=== PATIENT | female | born 2000 | race Two or more races ===

== ENCOUNTER 2025-03-02 12:31 | Emergency (ER) | payer SELFPAY ==
[2025-03-02 12:46] VITALS: BMI 27.8
[2025-03-02 12:49] VITALS: BP 153/87; PULSE 93; RESP 18; TEMP 36.8; O2SAT 100
--- NOTE | 2025-03-02 13:30 | EDNOTE_ITS ---
ED Headache RME/HPI General Chief Complaint: Headache Stated Complaint: STIFFNESS TO RIGHT SIDE OF HEAD DIZZINESS Time Seen by Provider: 03/02/25 12:55 Arrival date/time: 03/02/25 12:31 This is a 24-year-old female that comes into the emergency room with complaints of dizziness at times, headache and some mild neck pain. Patient also states that her right ear feels full. Patient was already seen by her primary provider and was started on prednisone, Sudafed, and Promethazine DM. Patient was treated for a viral illness along with eustachian tube dysfunction. Patient states that the Sudafed is making her feel worse. Patient really does not take anything for pain. Related Data Previous Rx's ?Medication ?Instructions ?Recorded alprazolam 0.25 mg tablet (Xanax) 0.25 mg PO BID PRN a nxiety #20 tabs 06/13/20 meclizine 50 mg tablet 50 mg PO BID PRN dizziness # 20 tabs 12/22/23 ibuprofen 800 mg tablet 800 mg PO Q6H PRN pain #14 t abs 03/02/25 meclizine 50 mg tablet 50 mg PO BID PRN dizziness o r 03/02/25 vertigo #20 tabs Allergies Allergy/AdvReac Type Severity Reaction Status Date / Time No Known Allergies Allergy Unknown Uncoded 03/02/25 12:34 Course Orders Category Date Time Status Acetaminophen Tab [Tylenol ES Tab] Med 03/02/25 13:30 Discontinued 1,000 mg PO X1 ONE Ibuprofen Tab [Motrin Tab] Med 03/02/25 13:30 Discontinued 800 mg PO X1 ONE Meclizine HCl [Antivert] Med 03/02/25 13:30 Discontinued 50 mg PO X1 ONE Vital Signs Vital signs: Vital Signs Temperature 98.3 F 03/02/25 12:49 Pulse Rate 93 03/02/25 12:49 Respiratory Rate 18 03/02/25 12:49 Blood Pressure 153/87 H 03/02/25 12:49 Pulse Oximetry (%) 100 03/02/25 12:49 Oxygen Delivery Method Room Air 03/02/25 12:49 Headache MDM Narrative MDM Narrative:: I gave patient Tylenol, ibuprofen, meclizine. Patient feels better. Patient not complaining of any dizziness. Patient ambulatory. Steady gait. I told patient she can stop taking the Sudafed. I will send patient home with meclizine at home. I also recommended that she can start taking an antihistamine at home. I told her to follow-up with her primary doctor in 1 to 2 days. Come back to the emergency room symptoms change or worsen. Medications / Prescriptions Medication administrations:: Medication Administration History Discontinued Medications Acetaminophen (Acetaminophen 500 Mg Tablet) 1,000 mg PO X1 ONE Stop: 03/02/25 13:31 Last Admin: 03/02/25 13:49 Dose: 1,000 mg Documented By: BRENDA Ibuprofen (Ibuprofen Tab 400 Mg Tablet) 800 mg PO X1 ONE Stop: 03/02/25 13:31 Last Admin: 03/02/25 13:50 Dose: 800 mg Documented By: BRENDA Meclizine HCl (Meclizine Hcl 25 Mg Tablet) 50 mg PO X1 ONE Stop: 03/02/25 13:31 Last Admin: 03/02/25 13:49 Dose: 50 mg Documented By: BRENDA Discharge Plan Plan Patient Disposition: HOME (Self Care) Patient condition on transfer: Stable Prescriptions/Referrals Prescriptions/Med Rec: New meclizine 50 mg tablet 50 mg PO BID PRN (Reason: dizziness or vertigo) Qty: 20 0RF ibuprofen 800 mg tablet 800 mg PO Q6H PRN (Reason: pain) Qty: 14 0RF No Action alprazolam [Xanax] 0.25 mg tablet 0.25 mg PO BID PRN (Reason: anxiety) Qty: 20 0RF meclizine 50 mg tablet 50 mg PO BID PRN (Reason: dizziness) Qty: 20 0RF Problem List Clinical Impression: Headache, Eustachian tube dysfunction Patient/Caregiver Discharge Instructions Discharge Activity: activity as tolerated Education Materials: Common Middle Ear Problems, Self-Care for Headaches Additional Instructions: Follow up with primary provider in 1-2 days. Come back to ED if symptoms change or worsen Print Language: Armenian Stand Alone Forms: Lisa Award Info., Patient Portal Info Letter PA/WELDER BOILERMAKER Supervising Physician PA/WELDER BOILERMAKER Supervising Physician: krishna
[2025-03-02] MEDS: MECLIZINE HCL 25 MG TABLET 50 MG PO (13:49)
[2025-03-02] MEDS: ACETAMINOPHEN 500 MG TABLET 1000 MG PO (13:49)
[2025-03-02] MEDS: IBUPROFEN TAB 400 MG TABLET 800 MG PO (13:50)
[2025-03-02 15:11] VITALS: BP 128/70; PULSE 68; RESP 18; TEMP 36.6; O2SAT 100
== END 2025-03-02 15:15 | disposition home or self-care (01) ==
LOC: SERX 15:22
PROVIDERS: Emergency Provider Emergency Medicine; PCP Physician Assistant
DX: R51.9 Headache, unspecified (principal); H69.90 Unspecified Eustachian tube disorder, unspecified ear
CPT/HCPCS: 99282; A9270

== ENCOUNTER 2025-03-06 11:19 | Emergency (ER) | payer SELFPAY ==
[2025-03-06 11:36] VITALS: BP 129/85; PULSE 98; RESP 18; TEMP 36.9; O2SAT 99; BMI 27.3
--- NOTE | 2025-03-06 11:40 | EKG_ITS ---
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
--- NOTE | 2025-03-06 11:40 | XR_ITS ---
Examination: CT brain head without contrast. 2-D sagittal coronal reconstructions Date and time of exam:March 06, 2025 1156 hours INDICATIONS: Onset right-sided head pain and dizziness today CTDI: vol (mGy):47 DLP: (mGycm):939 Technique: Multiple CT axial sections of the brain have been obtained, 5 mm slice thickness. Contrast has not been administered. 2-D sagittal, coronal reconstructions have been obtained Low dose protocols were performed. One or more of the following dose reduction techniques were used; automated exposure control, adjustment of the mA and/or KV according to patient size, use of iterative reconstruction technique. Findings: No significant ventricular enlargement. Intra-axial or extra-axial hemorrhage density is not seen. No mass effect or midline shift Basal cisterns are not remarkable. Fourth ventricle is midline. Cranial vault intact. Impression: Negative for acute hemorrhage, mass effect or midline shift Advise clinical correlation follow-up accordingly
--- NOTE | 2025-03-06 11:42 | PD.EDRME ---
Rapid Medical Screening Exam RME Arrival date/time: 03/06/25 11:19 24-year-old female presents to the emergency department today for complaints of dizziness, right-sided headache Chief Complaint: Headache Vital signs: Vital Signs Temperature 98.5 F 03/06/25 11:36 Pulse Rate 98 03/06/25 11:36 Respiratory Rate 18 03/06/25 11:36 Blood Pressure 129/85 H 03/06/25 11:36 Pulse Oximetry (%) 99 03/06/25 11:36 Oxygen Delivery Method Room Air 03/06/25 11:36
[2025-03-06 11:59] LABS: Basophils # (Auto) 0.1 Thou/mm3 (0.0-0.2); Basophils % (Auto) 1 % (0-2.5); Eosinophils # (Auto) 0.1 Thou/mm3 (0.0-0.5); Eosinophils % (Auto) 1 % (0-10); Hematocrit 44.1 % (36.0-46.0); Hemoglobin 15.4 g/dL (12.0-16.0); Immature Granulocytes Auto 0.09 Thou/mm3 (0.00-0.00); Lymphocytes # (Auto) 2.9 Thou/mm3 (1.0-4.8); Lymphocytes % (Auto) 27 % (10-50); Mean Corpuscular HGB Conc 34.9 g/dl (31.0-37.0); Mean Corpuscular Hemoglobin 29.2 pg (25.0-35.0); Mean Corpuscular Volume 84 fL (80-100); Monocytes # (Auto) 0.5 Thou/mm3 (0.0-0.8); Monocytes % (Auto) 5 % (0-12); Neutrophils # (Auto) 7.2 Thou/mm3 (1.8-7.7); Neutrophils % (Auto) 67 % (37-80); Nucleated Red Blood Cell # 0.00 Thou/mm3 (0.00-0.00); Nucleated Red Blood Cell % 0 /100 WBC (0); Platelet Count 354 Thou/mm3 (140-440); RDW Standard Deviation 37.6 fL (36.4-46.3); Red Blood Count 5.27 Miln/mm3 (4.00-5.20); White Blood Count 10.8 Thou/mm3 (3.6-11.0)
[2025-03-06 12:13] LABS: HCG,Qualitative Serum Negative
[2025-03-06 12:20] LABS: Alanine Aminotransferase 36 U/L (10-49); Albumin, Serum 5.1 gm/dL (3.5-5.0); Albumin/Globulin Ratio 1.7 (1.2-2.2); Alkaline Phosphatase 68 U/L (46-116); Anion Gap 11 (7-16); Aspartate Amino Transferase 21 U/L (0-34); BUN/Creatinine Ratio 9 Ratio (12-20); Bilirubin,Total 0.7 mg/dL (0.3-1.2); Blood Urea Nitrogen 8 mg/dL (9-23); Calcium 9.6 mg/dL (8.3-10.6); Calcium (Corrected) 9.6 mg/dL (8.5-10.1); Carbon Dioxide 28.1 mMol/L (20.0-31.0); Chloride 99 mMol/L (98-107); Creatinine (Component) 0.9 mg/dL (0.6-1.3); Estimated Creatinine Clearance 107.1 mL/min (>60); Globulin 3.0 gm/dL (2.3-3.5); Glucose 123 mg/dL (74-106); Osmolality,Calculated 274 (275-295); Potassium 3.9 mMol/L (3.4-5.1); Sodium 138 mMol/L (136-145); Total Protein 8.1 gm/dL (5.7-8.2); Troponin I < 0.002 ng/mL (0.0-0.045); eGFR > 60 See Note
--- NOTE | 2025-03-06 13:15 | EDNOTE_ITS ---
ED Headache RME/HPI General Chief Complaint: Headache Stated Complaint: YANG X 1 week, dizzy X 2 days, anxiety Time Seen by Provider: 03/06/25 12:48 Arrival date/time: 03/06/25 11:19 RME / HPI RME / HPI Narrative: 24-year-old female presents to the emergency department today for complaints of dizziness, right-sided headache, has been ongoing for the last 1 to 2 weeks, comes and goes, associated with dizziness for the last 2 days. Patient denies any upper or lower extremity weakness denies any focal neurologic deficit patient is ambulatory. Denies any fever. Denies any neck pain. Denies any low back pain. Denies any trauma or falls recently. Was seen by PCP, and was prescribed headache medications which according to her is not working. Related Data Previous Rx's ?Medication ?Instructions ?Recorded alprazolam 0.25 mg tablet (Xanax) 0.25 mg PO BID PRN a nxiety #20 tabs 06/13/20 meclizine 50 mg tablet 50 mg PO BID PRN dizziness # 20 tabs 12/22/23 ibuprofen 800 mg tablet 800 mg PO Q6H PRN pain #14 t abs 03/02/25 meclizine 50 mg tablet 50 mg PO BID PRN dizziness o r 03/02/25 vertigo #20 tabs cyclobenzaprine 10 mg tablet 10 mg PO TID PRN muscle s pasm #30 03/06/25 tabs rizatriptan 10 mg tablet (Maxalt) See Rx Instructions PO .COMPLEX 03/06/25 #20 tabs Allergies Allergy/AdvReac Type Severity Reaction Status Date / Time No Known Allergies Allergy Unknown Uncoded 03/06/25 11:27 Review of Systems Review of Systems Narrative Review of Systems: Review of system reviewed and within normal limits except mentioned in HPI ED Exam Narrative Physical exam: VITAL SIGNS: Reviewed. GENERAL APPEARANCE: Alert and interactive, follows commands, no acute distress, HEAD AND FACE: Non-traumatic. ENT: PERRL, pink conjunctivitis, eyelid no trauma, Mucous membrane moist. NECK: Supple, nontender, no nuchal rigidity. CHEST: No tenderness, no crepitus, no paradoxical movement, no retractions. LUNGS: Clear, well ventilated, symmetric, no rales, no wheezing, no ronchi, no stridor, good breath sounds bilaterally. HEART: Regular rate, regular rhythm, no murmur, no gallops. ABDOMEN: Soft, positive bowel sounds, nondistended, no guarding, nontender, no rebound, no masses, RECTAL: Deferred. GENITAL: Deferred. NEUROLOGICAL: Gross motor function intact sensory function intact, Appropriate for age. Negative Kernig's and Brezinski sign MUSCULOSKELETAL: low back nontender, full range of motion. EXTREMITIES: Nontender, full range of motion. SKIN: Color pink, dry, no rash, no lacerations, no abrasions, no contusions. LYMPHATICS: Deferred. Course Quality Measures none Orders Category Date Time Status EKG (ED ONLY) *Do not use* NOW Care 03/06/25 11:[address] head/brain wo con Stat Exams 03/06/25 11:40 Completed EKG (ED Only) Stat Exams 03/06/25 11:40 Draft CBC Stat Lab 03/06/25 11:52 Completed Comprehensive Metabolic Panel Stat Lab 03/06/25 11:52 Completed HCG,Qualitative Serum Stat Lab 03/06/25 11:52 Completed Troponin I Stat Lab 03/06/25 11:52 Completed Vital Signs Vital signs: Vital Signs Temperature 98.5 F 03/06/25 11:36 Pulse Rate 98 03/06/25 11:36 Respiratory Rate 18 03/06/25 11:36 Blood Pressure 129/85 H 03/06/25 11:36 Pulse Oximetry (%) 99 03/06/25 11:36 Oxygen Delivery Method Room Air 03/06/25 11:36 Headache MDM Narrative MDM Narrative:: 24-year-old female presents to the emergency department today for complaints of dizziness, right-sided headache, has been ongoing for the last 1 to 2 weeks, comes and goes, associated with dizziness for the last 2 days. Patient denies any upper or lower extremity weakness denies any focal neurologic deficit patient is ambulatory. Denies any fever. Denies any neck pain. Denies any low back pain. Denies any trauma or falls recently. Was seen by PCP, and was pr escribed headache medications which according to her is not working. Patient's workup today all came back normal including CT scan of the head. EKG also came back as normal sinus rhythm, ventricular rate of 94 bpm, no ST segment elevation or depression noted. Results discussed with the patient. Patient is ambulatory prior to discharge. Patient data External records reviewed:: None Clinical information provided by:: patient Social determinants that could affect healthcare access:: none Patient has the following chronic illnesses:: None How is presenting disease/condition affected by chronic disease/condition?: no chronic disease Evaluation data The following diagnostics were reviewed and interpreted by me:: lab results, radiology exam(s) and EKG tracing(s) Lab and/or radiology exams considered but not ordered:: None Interpretation Summary: See results MDM Medications / Prescriptions Medications or Prescriptions considered but not ordered:: None Medication administrations:: None Consultations Consultation(s) initiated? (list below): No Diagnosis Differential diagnosis headache: migraine, tension headache, subarachnoid hemorrhage and headache Most likely diagnosis given after review of the tests above:: Headache Admission Indicated Admission indicated?: not indicated Explain why admission is indicated or not indicated:: Stable Admission Request Was there a request for admission?: No Disposition Plan Disposition Plan: Discharge Discharge Attestation Discharge Attestation: The patient was given an opportunity to ask questions and understood the discharge instructions. Discharge instructions specifically effects, indications for sooner follow up or return to the emergency department, and the expected course of current diagnosis. Patient condition: Stable Discharge Plan Plan Patient Disposition: HOME (Self Care) Discharge Disposition comment: Stable Prescriptions/Referrals Prescriptions/Med Rec: New cyclobenzaprine 10 mg tablet 10 mg PO TID PRN (Reason: muscle spasm) Qty: 30 0RF rizatriptan [Maxalt] 10 mg tablet See Rx Instructions .ROUTE .COMPLEX Qty: 20 0RF Rx Instructions: take 1 tab at onset of headache; if no relief may repeat 1 tab after at least 2 hrs; max = 3 tabs/24 hr No Action alprazolam [Xanax] 0.25 mg tablet 0.25 mg PO BID PRN (Reason: anxiety) Qty: 20 0RF meclizine 50 mg tablet 50 mg PO BID PRN (Reason: dizziness or vertigo) Qty: 20 0RF ibuprofen 800 mg tablet 800 mg PO Q6H PRN (Reason: pain) Qty: 14 0RF meclizine 50 mg tablet 50 mg PO BID PRN (Reason: dizziness) Qty: 20 0RF Referrals: No Primary/Family,Physician [Primary Care Provider] - In 1 week Problem List Clinical Impression: Headache Patient/Caregiver Discharge Instructions Discharge Activity: activity as tolerated Education Materials: Self-Care for Headaches Additional Instructions: Thank you for the opportunity for serving you today. You are stable for discharged . You are advised to: Follow-up with your PCP in 1 to 2 days Return to ED for worsening of symptoms Increase oral fluids Take medication as prescribed continue taking your medication prescribed by your PCP also. Print Language: Hungarian Stand Alone Forms: Lisa Award Info., Patient Portal Info Letter
== END 2025-03-06 13:31 | disposition home or self-care (01) ==
PROVIDERS: Emergency Provider Nurse Practitioner Primary Care
DX: R51.9 Headache, unspecified (principal); R94.31 Abnormal electrocardiogram [ECG] [EKG]
CPT/HCPCS: 36415; 70450; 80053; 84484; 84703; 85025; 93005; 99283